=== PATIENT | female | born 1970 | race Caucasian/White ===

== ENCOUNTER 2023-05-19 11:54 | Day surgery (SDC) | payer BC ==
[2023-05-19] MEDS ORDERED: XYLOCAINE-MPF 1% 5ML SDV IJ ONE (11:55)
[2023-05-19] MEDS ORDERED: Decadron 4 MG INJ IV ONE (11:55)
[2023-05-19] MEDS ORDERED: Sodium Chloride 0.9(Preservative Free) 10 ML IJ ONE (11:55)
[2023-05-19] MEDS ORDERED: DIPRIVAN 200 MG/20 ML IV ONE (13:26)
--- NOTE | 2023-05-19 15:04 | XRAY ---
Indication: Right L4-S1 transforaminal LAURA. Intraoperative fluoroscopy provided for 30 seconds. 4 digital spot images submitted for interpretation demonstrates posterior needle tips projecting over the expected right L4 and L5 nerve roots. Small amount of contrast injected for needle tip placement. Correlate with intraoperative findings/report.
--- NOTE | 2023-05-19 15:04 | XRAY ---
Indication: Right piriformis injection. Intraoperative fluoroscopy provided for 6 seconds. Single digital spot image submitted for interpretation demonstrates posterior needle tip projecting over the right piriformis. Small amount of contrast injected for needle tip placement. Correlate with intraoperative findings/report.
--- NOTE | 2023-05-19 15:16 | XRAY ---
6 seconds of fluoroscopy was used in surgery for a right piriformis injection.
--- NOTE | 2023-05-19 15:17 | XRAY ---
30 seconds of fluoroscopy was used in surgery for a right L4-S1 transforaminal LAURA.
[2023-05-19] MEDS ORDERED: Lactated Ringers 1,000 ML IV ONE (16:28)
== END 2023-05-19 14:00 | disposition home or self-care (01) ==
LOC: SDC-PAIN 11:54
PROVIDERS: ATTEND Psychiatry & Neurology Pain Medicine
DX: M79.18 Myalgia, other site (principal); E11.9 Type 2 diabetes mellitus without complications
CPT/HCPCS: 20552; 64483; 64484; 72100; 72170; 77002; 77003; 82947; J1100; J2704; Q9966

== ENCOUNTER 2023-06-22 14:00 | Day surgery (SDC) | payer BC ==
[2023-06-22] MEDS ORDERED: BUPIVACAINE 0.5% VIAL IJ ONE (14:01)
[2023-06-22] MEDS ORDERED: XYLOCAINE-MPF 1% 5ML SDV IJ ONE (14:01)
[2023-06-22] MEDS ORDERED: Depo-Medrol 40 MG/ML IM ONE (14:01)
--- NOTE | 2023-06-22 20:09 | XRAY ---
Indication: Right knee injection. Intraoperative fluoroscopy provided for 24 seconds. Single digital spot image submitted for interpretation demonstrates needle tip projecting over right femur intercondylar notch. Small amount of contrast injected for needle tip placement. Correlate with intraoperative findings/report.
--- NOTE | 2023-06-22 20:09 | XRAY ---
Indication: Left knee injection. Intraoperative fluoroscopy provided for 8 seconds. Single digital spot image submitted for interpretation demonstrates needle tip projecting over left femur intercondylar notch. Small amount of contrast injected for needle tip placement. Correlate with intraoperative findings/report.
--- NOTE | 2023-06-23 09:16 | XRAY ---
8 seconds of fluoroscopy was used in surgery for a left intra-articular knee injection.
--- NOTE | 2023-06-23 09:16 | XRAY ---
24 seconds of fluoroscopy was used in surgery for a right intra-articular knee injection.
== END 2023-06-22 16:45 | disposition home or self-care (01) ==
LOC: SDC-PAIN 14:00
PROVIDERS: ATTEND Psychiatry & Neurology Pain Medicine
DX: M17.0 Bilateral primary osteoarthritis of knee (principal)
CPT/HCPCS: 20610; 73560; 77002; J1030; Q9966